=== PATIENT | female | born 1990 | race Two or more races ===

== ENCOUNTER → 2020-08-12 | Outpatient (CLI) | payer OTHER | END | disposition home or self-care (01) | LOC: OFIC 805 09:15 | PROVIDERS: ATTEND Otolaryngology | DX: J30.89 Other allergic rhinitis (principal) ==

== ENCOUNTER 2024-08-25 10:35 | Outpatient (CLI) | payer OTHER | END 2024-08-25 10:37 | disposition home or self-care (01) | LOC: SONOGRAMA 10:35 | PROVIDERS: ATTEND Pathology Anatomic Pathology & Clinical Pathology | DX: R22.1 Localized swelling, mass and lump, neck (principal) ==

== ENCOUNTER 2025-02-11 12:03 | Emergency (ER) | payer OTHER ==
[~2025-02-11] VITALS: Ht 162.6 cm; Wt 99.8 kg
[2025-02-11] MEDS ORDERED: SYNTHROID125 MCG PO (12:37)
[2025-02-11] MEDS ORDERED: PRENATA CHEWAB1 EACH (12:37)
[2025-02-11 13:39] LABS: BASO % 0.3 % (0.1-1.2); EOS # 0.25 (0.04-0.54); EOS % 2.5 % (0.7-7.0); HEMATOCRIT 39.4 % (34.1-44.9); HEMOGLOBIN 13.2 g/dL (11.2-15.7); LYMPH # 1.87 (1.18-3.74); LYMPH % 18.7 % (19.3-53.1); MEAN CORPUSCULAR HEMOGLOBIN 27.8 pg (25.6-32.2); MONO # 0.65 (0.24-0.82); MONO % 6.5 % (4.7-12.5); NEUT # 7.17 (1.56-6.13); NEUT % 71.6 % (34.0-71.1); PLATELET COUNT 258 K/uL (163-369); RED BLOOD COUNT 4.74 M/uL (3.93-5.22); RED CELL DISTRIBUTION WIDTH 13.5 % (11.6-14.4)
[2025-02-11 13:57] LABS: INR 1.04; PROTHROMBIN TIME 11.3 SECONDS (9.0-11.5)
[2025-02-11 14:14] LABS: ALBUMIN 3.6 gm/dL (3.4-5.0); BILIRUBIN TOTAL 0.3 mg/dL (0.3-1.2); CALCIUM 9.2 mg/dL (8.5-10.1); CREATININE SERUM 0.85 mg/dL (0.55-1.02); GFR 76.56; GLOBULINA 4.4 G/DL (2.4-3.5); POTASSIUM 4.23 mEq/L (3.5-5.1)
== END 2025-02-11 15:46 | disposition home or self-care (01) ==
LOC: ER 12:22
PROVIDERS: General Practice
DX: O20.8 Other hemorrhage in early pregnancy (principal); Z3A.01 Less than 8 weeks gestation of pregnancy; Z91.013 Allergy to seafood; N93.9 Abnormal uterine and vaginal bleeding, unspecified